=== PATIENT | female | born 1990 | race African-American/Black ===

== ENCOUNTER 2017-12-06 11:46 | Emergency (ER) | payer OTHER ==
[~2017-12-06] VITALS: Ht 162.6 cm; Wt 86.2 kg
[2017-12-06 12:09] LABS: URINE BILIRUBIN NEGATIVE (Negative); URINE BLOOD TRACE (Negative); URINE CLARITY CLEAR; URINE COLOR YELLOW; URINE GLUCOSE-RANDOM* NEGATIVE (Negative); URINE KETONES NEGATIVE (Negative); URINE LEUKOCYTES-REFLEX NEGATIVE (Negative); URINE NITRITE-REFLEX NEGATIVE (Negative); URINE PROTEIN (DIPSTICK) NEGATIVE (Negative); URINE UROBILINOGEN 0.2 E.U./dl (0.2-1.0)
== END 2017-12-06 12:45 | disposition left against medical advice (07) ==
LOC: ER 11:46
PROVIDERS: Emergency Medicine
DX: Z53.21 Procedure and treatment not carried out due to patient leaving prior to being seen by health care provider (principal)

== ENCOUNTER 2018-04-29 12:11 | Emergency (ER) | payer OTHER ==
[2018-04-29 12:17] VITALS: BP 132/84
== END 2018-04-29 13:08 | disposition home or self-care (01) ==
LOC: ER 12:11
DX: Z32.02 Encounter for pregnancy test, result negative (principal)

== ENCOUNTER 2019-10-17 20:27 | Emergency (ER) | payer OTHER ==
[~2019-10-17] VITALS: Ht 160 cm; Wt 83.9 kg
[2019-10-17 22:23] LABS: URINE BILIRUBIN NEGATIVE (Negative); URINE BLOOD NEGATIVE (Negative); URINE CLARITY CLEAR; URINE COLOR YELLOW; URINE GLUCOSE-RANDOM* NEGATIVE (Negative); URINE KETONES NEGATIVE (Negative); URINE LEUKOCYTES-REFLEX NEGATIVE (Negative); URINE NITRITE-REFLEX NEGATIVE (Negative); URINE PROTEIN (DIPSTICK) NEGATIVE (Negative); URINE SPECIFIC GRAVITY <= 1.005 (1.005-1.035); URINE UROBILINOGEN 0.2 E.U./dl (0.2-1.0)
[2019-10-17] MEDS ORDERED: NAPROSYN500 MG PO (22:38)
[2019-10-17] MEDS ORDERED: URISPAS100 MG PO (22:58)
[2019-10-17 23:17] VITALS: BP 134/74
== END 2019-10-17 23:22 | disposition home or self-care (01) ==
LOC: ER 20:27
PROVIDERS: Physician Assistant
DX: R10.30 Lower abdominal pain, unspecified (principal); R30.0 Dysuria; E66.9 Obesity, unspecified